=== PATIENT | male | born 1950 | race Caucasian/White ===

== ENCOUNTER → 2016-11-06 | Outpatient (CLI) | payer BC ==
--- NOTE | 2016-11-06 08:45 | DIAGNOSTIC IMAGING REPORT ---
ULTRASOUND EXAM AAA SCREEN CLINICAL HISTORY: Z00.00 screening examination for abdominal aortic aneurysm COMPARISON STUDY: None FINDINGS: The maximal aortic diameter was 24 mm. There is mild ectasia of the common right iliac artery which measured 14 mm. There is ectasia of the left common iliac artery which measures 18 mm. IMPRESSION: 1. No evidence of abdominal aortic aneurysm 2. Iliac artery ectasia Electronically signed by: Scout Kim M.D. 11/06/2016 8:43 AM Dictated Date/Time: 11/06/2016 8:42 AM
== END | disposition home or self-care (01) ==
LOC: C.ULTR 07:49
PROVIDERS: ATTEND Family Medicine
DX: Z00.00 Encounter for general adult medical examination without abnormal findings (principal); I77.9 Disorder of arteries and arterioles, unspecified

== ENCOUNTER → 2016-11-10 | Outpatient (CLI) | payer BC | END | disposition home or self-care (01) | LOC: C.RDSM 10:45 | PROVIDERS: ATTEND Physical Medicine & Rehabilitation Sports Medicine | DX: M25.562 Pain in left knee (principal) ==